=== PATIENT | male | born 1940 | race Caucasian/White ===

== ENCOUNTER 2018-04-30 11:09 | Emergency (ER) | payer OTHER, MEDICARE, BC ==
[~2018-04-30] VITALS: Ht 185.4 cm; Wt 81.6 kg
--- NOTE | ~2018-04-30 | EKG ---
[place], [place] ELECTROCARDIOGRAM REPORT NAME: CORRINA YIP UNIT #: [id number] ROOM: DOCTOR: EPIPHANY DRAFT REPORT BIRTHDATE: [birth year] [facility] Test Date: 2018-04-30 Test Time: 11:21:18 Pat Name: CORRINA YIP Department: Room: Gender: Airplane Electrician: EVELYN : 1940 Requested By: KATIE KHOURY Order Number: [id number] Reading MD: Edi Sahni MD Measurements Intervals [place] Rate: 127 P: [place]: QRS: -39 QRSD: 89 T: 60 QT: 339 QTc: 493 Interpretive Statements Atrial fibrillation Left axis deviation Abnormal R-wave progression, late transition Borderline prolonged QT interval No previous ECG available for comparison Electronically Signed On 05-01-2018 8:48:15 PST by Edi Sahni MD CM:EKGRPT:ELECTROCARDIOGRAM REPORT [id number] KATIE COOK DRAFT REPORT KATIE KHOURY M.D.
[2018-04-30 11:32] LABS: BASO # 0.1 10*3/uL (0.0-0.1); BASO % 0.9 % (0.0-1.0); EOS # 0.2 10*3/uL (0.0-0.4); HEMATOCRIT 42.8 % (42.0-52.0); HEMOGLOBIN 13.5 g/dl (14.0-18.0); LYMPH # 1.2 10*3/uL (1.3-4.4); LYMPH % 16.1 % (27.0-41.0); MEAN CELL VOLUME 87.9 fl (80.0-94.0); MEAN CORPUSCULAR HGB 27.7 pg (27.0-31.0); MEAN CORPUSCULAR HGB CONC 31.5 g/dl (33.0-37.0); MEAN PLATELET VOLUME 8.9 fl (9.6-12.3); MONO # 0.7 10*3/uL (0.1-1.0); MONO % 9.6 % (3.0-9.0); NEUT # 5.4 10*3/uL (2.3-7.9); PLATELET COUNT AUTOMATED 213 10*3/uL (130-400); RED BLOOD COUNT 4.87 10*6/uL (4.50-5.90); RED CELL DISTRI WIDTH 14.7 % (0-14.5); WHITE BLOOD COUNT 7.6 10*3/uL (4.8-10.8)
[2018-04-30 11:49] LABS: ALBUMIN 2.6 gm/dl (3.1-4.5); ALKALINE PHOSPHATASE 83 U/L (45-117); BUN 16 mg/dl (7-24); CHLORIDE 109 mmol/L (98-107); CREATININE 1.49 mg/dL (0.70-1.30); POTASSIUM 4.7 mmol/L (3.5-5.1); SGOT/AST 15 IU/L (3-35); SGPT/ALT 15 U/L (12-78); SODIUM 141 mmol/L (136-145); TOTAL PROTEIN 7.4 gm/dL (6.4-8.2)
[2018-04-30 11:52] LABS: TROPONIN I < 0.015 ng/ml (<0.045)
[2018-04-30] MEDS ORDERED: ELIQUIS5 M1 PO (13:22)
== END 2018-04-30 13:45 | disposition left against medical advice (07) ==
LOC: ED 11:09
PROVIDERS: Emergency Medicine
DX: I48.91 Unspecified atrial fibrillation (principal); F17.210 Nicotine dependence, cigarettes, uncomplicated